=== PATIENT | female | born 1990 ===

== ENCOUNTER 2024-01-20 10:44 | Outpatient (AMB) | payer BC, MEDICAID, SELFPAY ==
--- NOTE | 2024-01-20 10:54 | MHC.OFFVIS ---
Vital Signs 01/20/24 11:01 Height 5 ft Weight 125 lb 8 oz BMI 24.5 BP 116/68 Blood Pressure Location Lt brachial Position Sitting Respiration 16 Pulse 68 Pulse Source Pulse Oximeter Pulse Oximetry (%) 99 Oxygen Delivery Method Room Air Intake Visit Reasons: Bilateral hip pain Intake Note: Patient comes in for initial visit was referred by [facility]. Allergies No Known Allergies Allergy (Verified 01/20/24 10:57) HPI Comments Details: Bee is very pleasant 33 years old female who presents in my office with complains on the pain in bilateral hip joints. 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 As 6 years old she received multiple surgical procedures with pins and fixation done in [facility] however those did not help her condition. She continued to suffer from frequent dislocation of the joints. She is working full-time and she is in the process to receive bilateral total hip replacement with [facility]. She reports that movements aggravate her pain. She reports that heat cold and topical medications well as oral medications make her pain slightly better. In terms of tissue damage he describes her pain as pulsing, pounding, hot burning, searing, tingling, stinging, sickening, suffocating, spreading, piercing, cool, freezing sensation. She is currently taking Naprosyn 500 mg for her pain and Flexeril 5 mg as needed once a day and she reports that this allows her to be functional. She received multiple attempts at physical therapy and that they were not helpful for her pain. She never received any injections. Her past medical history is negative. Her past surgical history is described as above as multiple attempts to fix the dysplasia of the bilateral hip joints. She denies smoking cigarettes admits occasional drinking of alcohol she denies caffeinated beverages and she denies soda, she admits cannabis. Review of Systems Const All systems reviewed & are unremarkable except as noted in HPI and below ENT Reports Normal hearing present Neuro Reports Normal hearing present, Denies Abnormal speech present, Denies confusion and Denies Sensory deficit (Neuro) Psych Denies confusion Physical Exam Vital Signs: Last Vital Signs Pulse 68 01/20/24 11:01 Resp 16 01/20/24 11:01 BP 116/68 01/20/24 11:01 Pulse Ox 99 01/20/24 11:01 Oxygen Delivery Method Room Air 01/20/24 11:01 BMI result Body Mass Index 24.5 Const General: no acute distress; No confusion Orientation/consciousness: patient oriented x3 and No confusion Eyes General: appearance normal, both eyes and all related structures Pupils: Equal, round and reactive pupils present EOM: EOMs intact bilaterally Neck Neck: Yes full ROM Chest Chest palpation & inspection: normal inspection of the chest Resp Effort & Inspection: normal respiratory effort, able to speak in complete sentences, normal respiratory pattern, no audible wheezes and no cough Cardio Jugular venous distension: no JVD GI Inspection: Yes normal to inspection Neuro General: patient oriented x3, gait normal and No confusion Cranial nerves: Yes CN's II-XII intact bilaterally, Yes Equal, round and reactive pupils present, Yes Normal hearing present and Yes Ability to bilaterally elevate shoulders present Speech: No Abnormal speech present Gait exam (Neuro): Normal gait present Motor exam (neuro): 5/5 motor strength present throughout Sensory Exam: No Sensory deficit (Neuro) Extrem Other: Antalgic gait is demonstrated on bilateral lower extremities. Due to high-risk of the dislocation the other tests were not done to demonstrate arthritis of bilateral hips. 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 I informed the patient if she would continue to experience pain after total hip replacement spinal cord stimulator [employer] could be tried in bilateral lumbar gutter positioned to alleviate her chronic pain. I also recommended her to continue OTC Naprosyn, she can not request her primary care physician to prescribe her Flexeril. When I ask her whether she wants to join our chronic opioid program she refused and she would not like to become chronic opioid patient here. 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
[2024-01-20 11:01] VITALS: BP 116/68; PULSE 68; RESP 16; O2SAT 99; BMI 24.5
== END 2024-01-20 11:28 | disposition home or self-care (01) ==
PROVIDERS: PCP Internal Medicine; Visit Provider Anesthesiology
DX: M16.32 Unilateral osteoarthritis resulting from hip dysplasia, left hip (principal); M16.31 Unilateral osteoarthritis resulting from hip dysplasia, right hip; G89.4 Chronic pain syndrome
CPT/HCPCS: 99203